=== PATIENT | female | born 2000 | race Caucasian/White ===

== ENCOUNTER 2024-11-01 23:10 | Emergency (ER) | payer OTHER, SELFPAY ==
[2024-11-01 23:17] VITALS: BP 131/88; PULSE 70; RESP 16; TEMP 36.6; O2SAT 96; BMI 40.5
--- NOTE | 2024-11-02 01:40 | ED.GENADULT ---
HPI - General Adult General Chief complaint: Eye Problems Stated complaint: left eye burning Time Seen by Provider: 11/02/24 01:19 Source: patient, RN notes reviewed and old records reviewed Mode of arrival: ambulatory Limitations: no limitations History of Present Illness ED Provider: Jacobo HOWE narrative: 24-year-old female presents for evaluation of left eye pain. Patient reports that she had itching to her eye and was rubbing her eye. She then developed burning pain across her left eye. She flushed her eye out several times. Her symptoms started about 5-6 hours ago and have been worsening. She was sensitive to the light. She denies any discharge from the eye. She was not wear contacts She was not working with metal or welding Related Data Previous Rx's ?Medication ?Instructions ?Recorded erythromycin 5 mg/gram (0.5 %) eye 0.5 inch ophthalmic (eye) TID 5 11/02/24 ointment days #3.5 grams Allergies Allergy/AdvReac Type Severity Reaction Status Date / Time No Known Allergies Allergy Unverified 11/01/24 23:19 [No Known Allergies*] Review of Systems Constitutional: Constitutional: Denies body ache(s), Denies chills and Denies headache(s) Eyes: Eyes: Denies blurry vision, Denies eye discharge and Reports eye pain ENT: Denies vertigo, Denies dizziness and Denies headache(s) Cardiovascular: Cardiovascular: Denies chest pain and Denies dyspnea Respiratory: Respiratory: Denies cough and Denies dyspnea Gastrointestinal: Gastrointestinal: Denies abdominal pain, Denies nausea and Denies vomiting Neurologic: Denies vertigo, Denies dizziness and Denies headache(s) PMFSH Social History Social History Advance Directives: No Do you have a plan to hurt others: No Plan Physical Exam ED Vital Signs: Vital Signs - 24 hr 11/01/24 23:17 Temperature 97.8 F Pulse Rate 70 Respiratory Rate 16 Blood Pressure 131/88 Pulse Oximetry 96 Oxygen Delivery Method Room Air BMI result Body Mass Index 40.5 Const General: healthy appearing, comfortable, no acute distress, alert and awake Nutritional Appearance: well nourished Orientation/consciousness: patient oriented x3 HENMT Head: Yes normocephalic and Yes atraumatic Eyes Eyelids: Yes eyelids normal Conjunctivae: conjunctival abnormal left conjunctival injection diffuse; Negative for conjunctival icterus and without chemosis Sclerae: sclerae normal Corneas: corneas abnormal on the left (increased uptake about 3mm band across cornea. Lower half of pupil) fluorescein used and fluorescein used Pupils: Equal, round and reactive pupils present EOM: EOMs intact bilaterally Neck Neck: Yes full ROM Resp Effort & Inspection: normal respiratory effort, able to speak in complete sentences and not labored Cardio Rate: regular rate Rhythm: regular rhythm Skin General skin exam: elasticity normal Neuro General: patient oriented x3 Cranial nerves: Yes CN's II-XII intact bilaterally, Yes Equal, round and reactive pupils present and Yes Bilaterally intact EOM present Cognition (Neuro): normal cognition Extrem Other: Moving all extremities well without any obvious deformities Medical Decision Making Medical Decision Making MDM Narrative: 24-year-old female who does not wear corrective lenses presents for evaluation of a burning pain after rubbing her eyes and B [place]. There was no obvious foreign body on exam. Pupils equal, round and reactive. She has a very clear corneal abrasion with increased fluorescein uptake in a band across the lower half of the cornea. There may have been a foreign body, with the patient likely scratched her eye while trying to remove it. She flushed the eye herself. We will discharge the patient with the erythromycin ointment. Differential Diagnosis Differential Diagnoses: The differential diagnosis associated with the presentation includes A corneal abrasion Scleritis Foreign body Conjunctivitis Discharge Plan Discharge Clinical Impression: Corneal abrasion Patient Disposition: Home, Self-Care Instructions: Corneal Abrasion (ED) Additional Instructions: You have a corneal abrasion to the left eye. This causes lots of burning pain, but is very common and heals very well Apply the antibiotic ointment three times a day for 5 days Follow up with your primary doctor Prescriptions: New erythromycin 5 mg/gram (0.5 %) ointment 0.5 inch ophthalmic (eye) TID 5 Days Qty: 3.5 0RF Print Language: Citizen Of [place]
[2024-11-02 01:55] VITALS: BP 116/74; PULSE 71; RESP 18; TEMP 36.4; O2SAT 98
[2024-11-02 01:56] VITALS: BP 116/74; PULSE 71; RESP 18; TEMP 36.4; O2SAT 98
[2024-11-02] MEDS: Tetracaine HCl/PF 0.5% Oph Sol 4 ML DROPS 3 DROP EYE-LEFT (01:58)
[2024-11-02] MEDS: Fluorescein Sodium STRIP 1 STRIP EYE-LEFT (01:58)
== END 2024-11-02 01:57 | disposition home or self-care (01) ==
PROVIDERS: Emergency Provider Internal Medicine
DX: H57.89 Other specified disorders of eye and adnexa (principal)
CPT/HCPCS: 99283